=== PATIENT | male | born 1975 ===

== ENCOUNTER 2025-07-03 18:19 | Emergency (ER) | payer OTHER ==
[2025-07-03 20:14] LABS: #Basophils Less than 0.03 10x3/uL (0.0-0.2); #Eosinophils 0.11 10x3/uL (0.0-0.5); #Monocytes 0.44 10x3/uL (0.0-1.1); #Neutrophils 2.95 10x3/uL (1.5-8.4); %Basophils 0.2 % (0.0-2.0); %Eosinophils 2.6 % (0.0-6.0); %Lymphocytes 15.6 % (18.0-47.0); %Monocytes 10.5 % (0.0-10.0); %Neutrophils 70.6 % (40.0-75.0); Hematocrit 15.9 % (38.8-50.0); Hemoglobin 4.0 g/dL (13.5-17.5); Mean Corpuscular Hemoglobin 16.8 pg (27.0-33.0); Mean Corpuscular Volume 66.8 fL (81.2-95.1); Platelet Count 140 10x3/uL (150-450); Red Blood Cell (RBC) Count 2.38 10x6/uL (4.32-5.72); White Blood Cell (WBC) Count 4.18 10x3/uL (3.5-10.5)
[2025-07-03 20:15] LABS: ALT (SGPT) 9 U/L (Less than 45); AST (SGOT) 14 U/L (11-34); Albumin 4.1 g/dL (3.1-4.5); Alkaline Phosphatase 59 U/L (40-110); Anion Gap 13 mmol/L (10-20); BUN (Urea Nitrogen) 11 mg/dL (8.4-25.7); Bilirubin, Total 0.3 mg/dL (0.3-1.2); Calc. Creatinine Clearance 0 mL/min (70-130); Calcium 8.8 mg/dL (7.8-10.44); Carbon Dioxide 25 mmol/L (22-29); Chloride 106 mmol/L (98-107); Globulin 2.9 g/dL (2.4-3.5); Glucose 86 mg/dL (70-105); Lipase 19 U/L (8-78); Magnesium 2.2 mg/dL (1.6-2.6); Potassium 3.9 mmol/L (3.5-5.1); Sodium 140 mmol/L (136-145)
[2025-07-03 20:31] LABS: INR-International Normal Ratio 1.1; PTT 23.4 sec (22.0-33.0); Prothrombin Time 11.9 sec (9.5-12.1)
[2025-07-03] MEDS ORDERED: Pantoprazole 40 MG VIAL ONE (21:46)
[2025-07-03 21:56] LABS: Anisocytosis SLIGHT = 6-15 cells (100X) (0-5/hpf); Microcytosis MODERATE=15-30 cells (100X) (0-5/hpf); Platelet Adequacy Comment Appears Decreased
[2025-07-03 21:57] LABS: Polychromasia SLIGHT = 2-3 cells (100X) (0-2/hpf); Stomatocytes SLIGHT = 2-5 cells (100X) (0-1/hpf)
== END 2025-07-03 23:09 | disposition short-term general hospital (02) ==
LOC: CSHERS 18:19
DX: K62.5 Hemorrhage of anus and rectum (principal); D64.9 Anemia, unspecified; J44.9 Chronic obstructive pulmonary disease, unspecified; K21.9 Gastro-esophageal reflux disease without esophagitis; Z79.51 Long term (current) use of inhaled steroids; Z79.899 Other long term (current) drug therapy
CPT/HCPCS: 36415; 36430; 80053; 83690; 83735; 85025; 85060; 85610; 85730; 86850; 86900; 86901; 93005; 96374; J2470; P9016